=== PATIENT | female | born 2000 | race Caucasian/White ===

== ENCOUNTER 2023-02-23 07:21 | Emergency (ER) | payer OTHER ==
[~2023-02-23] VITALS: Ht 172.7 cm; Wt 89.9 kg
[2023-02-23 07:22] VITALS: BP 123/74; TEMP 97.1; O2SAT 99
[2023-02-23 08:57] LABS: MONO SCRN NEGATIVE (NEGATIVE)
[2023-02-23] MEDS ORDERED: AMOX875T2 PO (09:12)
[2023-02-23] MEDS ORDERED: FLON1SPR NARES (09:12)
[2023-02-23] MEDS ORDERED: PSEU-52 PO (09:12)
[2023-02-23] MEDS ORDERED: MUCI120T PO (09:12)
== END 2023-02-23 09:26 | disposition home or self-care (01) ==
LOC: M ED 07:21
DX: J01.90 Acute sinusitis, unspecified (principal); Z79.2 Long term (current) use of antibiotics; Z79.899 Other long term (current) drug therapy; Z79.52 Long term (current) use of systemic steroids